=== PATIENT | male | born 1940 ===

== ENCOUNTER 2016-09-01 09:35 | Emergency (ER) | payer BC ==
[2016-09-01 09:51] VITALS: BP 134/60; PULSE 90; RESP 20; TEMP 98; O2SAT 98
[2016-09-01] MEDS ORDERED: Albuterol-Ipratrop 3 mg / 0.5 (3 ml) UD IH STA (10:21)
[2016-09-01] MEDS ORDERED: Albuterol-Ipratrop 3 mg / 0.5 (3 ml) UD ONE (10:22)
--- NOTE | 2016-09-01 10:24 | ED PDOC ---
HPI: CCC, URI, Sore Throat Time Seen by Provider: 09/01/16 09:57 Chief Complaint (Nursing): Chest Pain History Per: Patient Onset/Duration Of Symptoms: Days (3) Current Symptoms Are (Timing): Still Present Associated Symptoms: Cough, Sputum. denies: Fever Severity: Mild Additional Complaint(s): Cough productive yellow sputum x 3 days assoc with congestion. No fever, chest pain or SOB Past Medical History Vital Signs: Last Vital Signs Temp 98 F 09/01/16 09:49 Pulse 90 09/01/16 09:49 Resp 20 09/01/16 09:49 BP 134/60 09/01/16 09:49 Pulse Ox 98 09/01/16 10:23 - Medical History PMH: No Chronic Diseases - Family History Family History: States: Unknown Family Hx - Home Medications Home Medications: Ambulatory Orders Medication Instructions Recorded Albuterol HFA [Ventolin HFA 90 2 puff IH Q4H #1 puff 09/01/16 mcg/actuation (8 g)] Amoxicillin [Amoxil 500 mg Cap] 500 mg PO TID #30 cap 09/01/16 - Allergies Allergies/Adverse Reactions: Allergies Allergy/AdvReac Type Severity Reaction Status Date / Time No Known Allergies Allergy Verified 09/01/16 09:49 Review of Systems ROS Statement: Except As Marked, All Systems Reviewed And Found Negative Constitutional: Negative for: Fever Respiratory: Positive for: Cough, Sputum. Negative for: Shortness of Breath Physical Exam - Reviewed Nursing Documentation Reviewed: Yes Vital Signs Reviewed: Yes - Physical Exam Appears: Positive for: Non-toxic, No Acute Distress Head Exam: Positive for: ATRAUMATIC, NORMAL INSPECTION, NORMOCEPHALIC Skin: Positive for: Normal Color, Warm, DRY Eye Exam: Positive for: EOMI, Normal appearance, PERRL ENT: Positive for: Normal ENT Inspection Neck: Positive for: Normal, Painless ROM Cardiovascular/Chest: Positive for: Regular Rate, Rhythm Respiratory: Positive for: Rhonchi. Negative for: Wheezing, Respiratory Distress Gastrointestinal/Abdominal: Positive for: Normal Exam, Bowel Sounds, Soft Back: Positive for: Normal Inspection Extremity: Positive for: Normal ROM Neurologic/Psych: Positive for: Alert, Oriented - ECG O2 Sat by Pulse Oximetry: 98 Disposition - Clinical Impression Clinical Impression: Bronchitis - Patient ED Disposition Is Patient to be Admitted: No Counseled Patient/Family Regarding: Studies Performed, Diagnosis, Need For Followup, Rx Given - Disposition Referrals: [facility] [place] [Outside] Disposition: Routine/Home Disposition Time: 12:03 Condition: FAIR Prescriptions: Albuterol HFA [Ventolin HFA 90 mcg/actuation (8 g)] 2 puff IH Q4H #1 puff Amoxicillin [Amoxil 500 mg Cap] 500 mg PO TID #30 cap Instructions: Acute Bronchitis (ED) Print Language: TONGAN
--- NOTE | 2016-09-01 12:59 | RAD ---
HISTORY: cough COMPARISON: None available. TECHNIQUE: Chest PA and lateral FINDINGS: Limited by habitus, hypoinflation, and patient obliquity. LUNGS: No focal consolidation. Please note that chest x-ray has limited sensitivity for the detection of pulmonary masses. PLEURA: No significant pleural effusion identified. No definite pneumothorax . CARDIOVASCULAR: Heart size appears within normal limits. Mildly tortuous aorta. OSSEOUS STRUCTURES: Osseous demineralization. Multilevel degenerative changes of the spine. Compression fracture deformities at several levels of the mid to lower thoracic spine, age indeterminate. VISUALIZED UPPER ABDOMEN: Unremarkable. OTHER FINDINGS: None. IMPRESSION: No focal consolidation, significant pleural effusion, or definite pneumothorax identified. Osseous demineralization. Multilevel degenerative changes of the spine. Compression fracture deformities at several levels of the mid to lower thoracic spine, age indeterminate.
--- NOTE | 2016-09-04 15:24 | CARD ---
APPROVED REPORT EKG Measurement Heart [id number] <Conclusion> Sinus rhythm with frequent APCs Otherwise normal ECG
== END 2016-09-01 12:26 | disposition home or self-care (01) ==
LOC: H.ER 09:35
DX: J02.9 Acute pharyngitis, unspecified (principal)

== ENCOUNTER 2018-04-10 15:18 | Emergency (ER) | payer BC, MEDICARE ==
[2018-04-10 15:25] VITALS: BP 154/75; PULSE 74; RESP 16; TEMP 98.2; O2SAT 97
[2018-04-10 16:38] LABS: BASO % 0.3 % (0.0-2.0); EOS # 0.2 K/uL (0.0-0.7); EOS % 2.8 % (0.0-4.0); LYMPH # 1.4 K/uL (1.0-4.3); LYMPH % 21.4 % (20.0-40.0); MEAN CELL VOLUME 86.7 fl (80.0-94.0); MEAN CORPUSCULAR HEMOGLOBIN 30.2 pg (27.0-31.0); MEAN CORPUSCULAR HGB CONC 34.9 g/dL (33.0-37.0); MONO # 0.6 K/uL (0.0-0.8); MONO % 10.2 % (0.0-10.0); NEUT # 4.2 K/uL (1.8-7.0); NEUT % 65.3 % (50.0-75.0); RBC 4.96 Mil/uL (4.40-5.90); RED CELL DISTRIBUTION WIDTH 13.4 % (11.5-14.5); WHITE BLOOD COUNT 6.4 K/uL (4.8-10.8)
[2018-04-10 16:46] LABS: PROTHROMBIN TIME 11.9 Seconds (9.8-13.1)
[2018-04-10 16:54] LABS: PARTIAL THROMBOPLASTIN TIME 37.2 Seconds (25.6-37.1)
[2018-04-10 17:04] LABS: ALBUMIN 4.6 g/dL (3.5-5.0); ALT/SGPT 29 U/L (21-72); AST/SGOT 30 U/L (17-59); BLOOD UREA NITROGEN 24 mg/dl (9-20); GFR NON-AFRICAN AMERICAN 58; LIPASE 189 U/L (23-300)
--- NOTE | 2018-04-10 17:10 | ED PDOC ---
HPI: Abdomen Time Seen by Provider: 04/10/18 15:33 Chief Complaint (Nursing): Abdominal Pain Chief Complaint (Provider): Abdominal Pain History Per: Patient History/Exam Limitations: no limitations Onset/Duration Of Symptoms: Days (x7), Waxing/Waning Current Symptoms Are (Timing): Still Present Additional Complaint(s): 78 y/o male with a PMHx of HTN, DM and hypercholesterolemia presents to the ED for evaluation of right sided abdominal pain, onset one week ago. Patient describes pain as constant, waxes and wanes and is associated with mild nausea. Otherwise, patient denies any change in eating, change in appetite, vomiting, diarrhea, constipation, urinary symptoms, fever, chills and medications for pain. PMD: Morgan Floyd Past Medical History Reviewed: Historical Data, Nursing Documentation, Vital Signs Vital Signs: Last Vital Signs Temp 98.2 F 04/10/18 15:23 Pulse 74 04/10/18 15:23 Resp 16 04/10/18 15:23 BP 154/75 H 04/10/18 15:23 Pulse Ox 97 04/10/18 15:23 - Medical History PMH: Diabetes, HTN, Hypercholesterolemia - Surgical History Surgical History: No Surg Hx - Family History Family History: States: No Known Family Hx - Social History Alcohol: None - Home Medications Home Medications: Ambulatory Orders Medication Instructions Recorded Albuterol HFA [Ventolin HFA 90 2 puff IH Q4H #1 puff 09/01/16 mcg/actuation (8 g)] Amoxicillin [Amoxil 500 mg Cap] 500 mg PO TID #30 cap 09/01/16 Dicyclomine [Bentyl] 20 mg PO QID PRN #20 tab 04/10/18 Omeprazole Magnesium [Prilosec Otc] 20 mg PO DAILY #30 tcp 04/10/18 - Allergies Allergies/Adverse Reactions: Allergies Allergy/AdvReac Type Severity Reaction Status Date / Time No Known Allergies Allergy Verified 04/10/18 15:22 Review of Systems ROS Statement: Except As Marked, All Systems Reviewed And Found Negative (as per HPI) Constitutional: Negative for: Fever, Chills Gastrointestinal: Positive for: Nausea, Abdominal Pain. Negative for: Vomiting, Diarrhea, Constipation Genitourinary Male: Negative for: Dysuria, Frequency, Hematuria Physical Exam - Reviewed Nursing Documentation Reviewed: Yes Vital Signs Reviewed: Yes - Physical Exam Appears: Positive for: No Acute Distress Head Exam: Positive for: ATRAUMATIC, NORMOCEPHALIC Skin: Positive for: Warm, Dry Eye Exam: Positive for: EOMI, PERRL ENT: Negative for: Pharyngeal Erythema, Tonsillar Exudate Neck: Positive for: Painless ROM, Supple Cardiovascular/Chest: Positive for: Regular Rate, Rhythm. Negative for: Murmur Respiratory: Positive for: Normal Breath Sounds. Negative for: Respiratory Distress Gastrointestinal/Abdominal: Positive for: Soft, Tenderness (RUQ tenderness to palpation. (-) Low's point, (-) Mcburney's). Negative for: Mass, Guarding, Rebound Back: Positive for: Normal Inspection. Negative for: L CVA Tenderness, R CVA Tenderness Extremity: Positive for: Normal ROM. Negative for: Deformity Lymphatic: Negative for: Adenopathy Neurologic/Psych: Positive for: Alert. Negative for: Motor/Sensory Deficits - Laboratory Results Result Diagrams: 04/10/18 16:34 04/10/18 16:34 Lab Results: PT 11.9 Seconds (9.8-13.1) 04/10/18 16:34 INR 1.0 04/10/18 16:34 APTT 37.2 Seconds (25.6-37.1) H 04/10/18 16:34 Total Bilirubin 0.8 mg/dl (0.2-1.3) 04/10/18 16:34 AST 30 U/L (17-59) 04/10/18 16:34 ALT 29 U/L (21-72) 04/10/18 16:34 Alkaline Phosphatase 92 U/L (38-126) 04/10/18 16:34 Total Protein 8.2 G/DL (6.3-8.2) 04/10/18 16:34 Albumin 4.6 g/dL (3.5-5.0) 04/10/18 16:34 Albumin/Globulin Ratio 1.2 (1.0-2.1) 04/10/18 16:34 Lipase 189 U/L (23-300) 04/10/18 16:34 - ECG O2 Sat by Pulse Oximetry: 97 (RA) Pulse Ox Interpretation: Normal Medical Decision Making Medical Decision Making: Time: 1617 Impression: Abdominal Pain Differentials include but not limited to hepatitis, pancreatitis, cholecystitis, gastritis and enteritis. Plan: -- CMP -- Lact Acid, Plasma -- Lipase -- ED Urine Dipstick -- CBC with Differentials -- PTT -- Prothrombin Time -- IV Insertion -- US Abdomen Limited Accession No. : [id number] Patient Name / ID : ONEIDA PHELPS / [id number] Exam Date : 04/10/2018 16:51:12 ( Approved ) Study Comment : Sex / Age : M / 78Y Creator : Chris Gavin MD Dictator : Chris Gavin MD Manager Assessment : Barrel Racer : Chris Gavin MD Approver2 : Report Date : 04/10/2018 18:16:17 My Comment : Date of service: 04/10/2018 HISTORY: upper abdominal pain COMPARISON: None. TECHNIQUE: Sonographic evaluation of the right upper quadrant of the abdomen. FINDINGS: LIVER: Measures 13.3 cm in length. Normal echogenicity of the liver parenchyma. No mass. No intrahepatic bile duct dilatation. GALLBLADDER: Unremarkable. No gallstones. No sonographic Low sign COMMON BILE DUCT: Measures 2.0 mm. No stones. No dilatation. PANCREAS: Pancreas not visualized due to body habitus and bowel gas RIGHT KIDNEY: Measures 9.3 x 4.9 x 7.2 cm in length. Normal echogenicity. No calculus, mass, or hydronephrosis.. There appears to be small cysts midpole region one measuring 6 mm in greatest dimension and the other measuring 5 mm in greatest dimension. AORTA: No aneurysmal dilatation. IVC: Unremarkable. OTHER FINDINGS: None . IMPRESSION: Small cysts right kidney. Labs demonstrate mild hypokalemia and udip unremarkable. Stable for discharge. Scribe Attestation: Documented by Harriet Matta, acting as a scribe for Charlotte Lunsford MD. Provider Scribe Attestation: All medical record entries made by the Scribe were at my direction and personally dictated by me. I have reviewed the chart and agree that the record accurately reflects my personal performance of the history, physical exam, medical decision making, and the department course for this patient. I have also personally directed, reviewed, and agree with the discharge instructions and disposition. Disposition - Clinical Impression Clinical Impression: Abdominal pain, Hypokalemia Counseled Patient/Family Regarding: Studies Performed, Diagnosis, Need For Followup, Rx Given - Disposition Referrals: [facility] [Provider Group] (FOLLOW UP WITH DR CRYSTAL FLOYD THURSDAY FOR FURTHER EVALUATION) Disposition: Routine/Home Disposition Time: 19:44 Condition: STABLE Prescriptions: Dicyclomine [Bentyl] 20 mg PO QID PRN #20 tab PRN Reason: abdominal pain Omeprazole Magnesium [Prilosec Otc] 20 mg PO DAILY #30 tcp Instructions: Acute Abdomen (Belly Pain), Adult (DC), Hypokalemia (DC) Print Language: DANISH
[2018-04-10 18:05] LABS: ALB/GLOB RATIO 1.3 (1.0-2.1)
--- NOTE | 2018-04-10 18:20 | US ---
Date of service: 04/10/2018 HISTORY: upper abdominal pain COMPARISON: None. TECHNIQUE: Sonographic evaluation of the right upper quadrant of the abdomen. FINDINGS: LIVER: Measures 13.3 cm in length. Normal echogenicity of the liver parenchyma. No mass. No intrahepatic bile duct dilatation. GALLBLADDER: Unremarkable. No gallstones. No sonographic Low sign COMMON BILE DUCT: Measures 2.0 mm. No stones. No dilatation. PANCREAS: Pancreas not visualized due to body habitus and bowel gas RIGHT KIDNEY: Measures 9.3 x 4.9 x 7.2 cm in length. Normal echogenicity. No calculus, mass, or hydronephrosis.. There appears to be small cysts midpole region one measuring 6 mm in greatest dimension and the other measuring 5 mm in greatest dimension. AORTA: No aneurysmal dilatation. IVC: Unremarkable. OTHER FINDINGS: None . IMPRESSION: Small cysts right kidney.
[2018-04-10] MEDS ORDERED: Potassium Chloride 20 mEq ER Tab PO STA (18:26)
[2018-04-10] MEDS ORDERED: Alum-Mag Hydrox-Simethicone Susp (30 mL) PO STA (18:26)
[2018-04-10] MEDS ORDERED: Potassium Chloride 20 mEq ER Tab PO ONE (19:10)
[2018-04-10] MEDS ORDERED: Alum-Mag Hydrox-Simethicone Susp (30 mL) ONE (19:10)
== END 2018-04-11 19:44 | disposition home or self-care (01) ==
LOC: H.ER 15:18
DX: R10.9 Unspecified abdominal pain (principal); E87.6 Hypokalemia; E11.9 Type 2 diabetes mellitus without complications; E78.00 Pure hypercholesterolemia, unspecified; I10 Essential (primary) hypertension; K85.90 Acute pancreatitis without necrosis or infection, unspecified; Z79.899 Other long term (current) drug therapy